=== PATIENT | male | born 1985 ===

== ENCOUNTER → 2017-06-15 | Emergency (ER) | payer OTHER ==
[~2017-06-15] VITALS: Ht 167.6 cm; Wt 99.8 kg
[~2017-06-15] MED LIST: BENADRYL25 MG PO; MEDROL4 MG PO; VISTARIL25 MG PO
== END | disposition home or self-care (01) ==
LOC: ER 20:52
DX: R06.02 Shortness of breath (principal); F41.8 Other specified anxiety disorders